=== PATIENT | male | born 1960 | race Caucasian/White ===

== ENCOUNTER 2018-10-05 14:30 | Emergency (ER) | payer SELFPAY ==
--- NOTE | 2018-10-05 15:41 | PDOC ---
History of Present Illness - General Chief Complaint: Alcohol intoxication Stated Complaint: INTOX/VOMITING Time Seen by Provider: 10/05/18 15:29 - History of Present Illness Initial Comments: 58yo M with PMH of HTN and ETOH abuse sent by [facility] for chest pain. Patient was at [facility] yesterday and was sent to [facility] for detox. Upon intake, patient was found to have chest pain and sent to this ED for further evaluation. Patient states he has had this chest pain for the past month. It is rated 6/10 and gets worse when he vomits and better when he drinks alcohol. He endorses that exertion also makes his pain worse. It is nonpalpable but it is pleuritic. It radiates to his left shoulder. He has never had pain like this before. Denies personal or family history of HI. He is a half pack per day smoker for the past six years. Patient believes he has seen a crm solution architect, more than five years ago, but is unsure whether he has had a stress test or not. No recent surgeries, no history of malignancy, no hemoptysis, no hormone use. Past History - Past Medical History Allergies/Adverse Reactions: Allergies Allergy/AdvReac Type Severity Reaction Status Date / Time No Known Allergies Allergy Verified 10/05/18 13:22 Home Medications: Ambulatory Orders Furosemide [Lasix -] 20 mg PO DAILY 10/05/18 Asthma: No Cardiac Disorders: No COPD: No Diabetes: No GI Disorders: No Disorders: No HTN: Yes Kidney Stones: No Seizures: No - Surgical History Appendectomy: Yes (1981) Orthopedic Surgery: Yes (right knee 1993) - Reproductive History Testicular Surgery: No - Suicide/Smoking/Psychosocial Hx Smoking History: Current every day smoker Have you smoked in the past 12 months: Yes Number of Cigarettes Smoked Daily: 10 Review of Systems - Review of Systems Comments:: Constitutional: no fever, no chills HEENT: no throat pain, no dysphagia Cardiovascular: +chest pain, no palpitations Respiratory: no cough, no shortness of breath Gastrointestinal: no abdominal pain,+vomiting Genitourinary: no dysuria, no frequency Musculoskeletal: no myalgia, no arthralgia Skin: no rash, no itching Neurologic: no headache, no dizziness *Physical Exam - Physical Exam Comments: General: Awake, alert, and fully oriented, in no acute distress Head: No signs of trauma Eyes: EOMI, sclera anicteric ENT: Moist mucus membranes Neck: Normal ROM, supple Lungs: Lungs clear, Normal breath sounds Cardio: Regular rhythm, S1 and S2 present Abdomen: Soft, nontender. No guarding, no rebound, no masses Extremities: Normal range of motion, Distal pulses present. No edema. SKIN: Warm, Dry, normal turgor Neurologic: Cranial nerves II through XII grossly intact. Normal speech. ED Treatment Course - LABORATORY CBC & Chemistry Diagram: 10/05/18 16:00 10/05/18 16:00 Medical Decision Making - Medical Decision Making 58yo M with PMH of HTN and ETOH abuse sent by [facility] for chest pain. DDX including but not limited to ACS, PNA, PE, MSK, Esophagitis Librium for alcohol withdrawal 1L NS Cardiac workup CXR: no acute pathology EKG with no ST d/e, isolated t wave abnormality in lead III No anemia or leukocytosis Electrolytes unremarkable AST 290, ALT 94 consistent with transaminitis due to alcohol abuse Decision made for RUQ US to elevate for abdominal pathology US: "Hepatomegaly with diffuse fatty infiltration of the liver" Tpn negative 10/05/18 20:02 Pending second tpn 10/05/18 20:59 Second tpn negative Lipase nl Will contact [facility] re: sending this patient to detox after negative cardiac workup 10/05/18 21:27 Another 50mg librium ordered for withdrawal Patient initially reluctant to present to detox, however, utilized motivational interviewing and patient amenable to going. 10/05/18 21:51 *DC/Admit/Observation/Transfer Diagnosis at time of Disposition: Alcoholic fatty liver Chest pain Qualifiers: Chest pain type: chest pain on breathing Qualified Code(s): R07.1 - Chest pain on breathing - Discharge Dispostion Disposition: HOME Condition at time of disposition: Stable - Referrals Referrals: [facility] [place] [facility] [place] [Provider Group] - Patient Instructions Printed Discharge Instructions: DI for Alcohol Abuse Additional Instructions: You came into the ED for chest pain. We performed blood work and an Xray which was normal. Lab work and an ultrasound showed signs of an enlarged and fatty liver. Follow-up with a primary care doctor this week to discuss this ED visit and to further evaluate your chest pain and abnormal liver. You have been referred to the [facility] in case you are unable to see your other doctor. Call and make an appointment at the number provided. Call for emergency medicine services or go to the emergency room right away if you have symptoms of a heart attack, including: Chest pain, which may feel like a crushing weight A sense of fullness, squeezing, or pressure in the chest Rapid, irregular heartbeat Pain, tingling or numbness in the left shoulder and arm, the neck or jaw, or the right arm Sweating Nausea or vomiting Lightheadedness, weakness, or fainting Shortness of breath If you think you have an emergency, call for medical help right away. - Post Discharge Activity
[2018-10-05] MEDS ORDERED: SODIUM CHLORIDE 1,000 ML IV STA (15:59)
[2018-10-05 16:40] VITALS: BP 157/87; PULSE 90; TEMP 98.3
[2018-10-05 16:46] LABS: BASO % 0.7 % (0-2.0); EOS % 0.5 % (0-4.5); HEMATOCRIT 38.8 % (35.4-49); HEMOGLOBIN 13.3 GM/dL (11.7-16.9); LYMPH % 17.7 % (8-40); MCH 35.1 pg (25.7-33.7); MCHC 34.2 g/dl (32.0-35.9); MEAN CELL VOLUME 102.4 fl (80-96); MEAN PLT VOLUME 8.5 fl (7.5-11.1); MONO % 5.3 % (3.8-10.2); NEUT % 75.8 % (42.8-82.8); PLATELET COUNT 110 K/MM3 (134-434); RBC 3.79 M/mm3 (4.00-5.60); RDW 14.5 % (11.9-15.9)
[2018-10-05 17:00] LABS: INR 1.01 (0.83-1.09); PROTHROMBIN TIME (PATIENT) 11.9 SEC (9.7-13.0)
[2018-10-05 17:16] LABS: ALBUMIN 3.7 g/dl (3.4-5.0); ALK PHOS 133 U/L (45-117); ANION GAP 12 MMOL/L (8-16); BILIRUBIN,TOTAL 1.4 mg/dL (0.2-1); BLOOD UREA NITROGEN 10 mg/dL (7-18); CALCIUM 8.3 mg/dL (8.5-10.1); CHLORIDE 102 mmol/L (98-107); CO2 24 mmol/L (21-32); CREATININE 0.7 mg/dL (0.55-1.3); GLUCOSE,RANDOM 73 mg/dL (74-106); POTASSIUM 3.5 mmol/L (3.5-5.1); SGOT/AST 290 U/L (15-37); SGPT/ALT 94 U/L (13-61); SODIUM 137 mmol/L (136-145); TOT PROT 7.1 g/dl (6.4-8.2)
[2018-10-05] MEDS ORDERED: chlordiazePOXIDE HCL 25 MG CAPSULE PO ONE ×2 (17:31→21:50)
[2018-10-05] MEDS ORDERED: chlordiazePOXIDE HCL 25 MG CAPSULE ONE ×2 (18:43→21:53)
--- NOTE | 2018-10-05 18:54 | PDOC ---
Attending Attestation - Resident Resident Name: Garima Miller - ED Attending Attestation I have performed the following: I have examined & evaluated the patient, The case was reviewed & discussed with the resident, I agree w/resident's findings & plan - HPI HPI: 10/06/18 07:09 [id number], with a significant past medical history of HTN and EtOH abuse, who presents to the emergency department via EMS from [facility] with, 1 month of worsening, 6/10, sharp, left-sided chest pain, AP and nausea. Allergies: NKA Past Medical History: HTN and EtOH abuse Social history: Lives with family. PPD. Alcohol abuse (last drink 2pt yesterday). No illicit drugs. Surgical history: None reported. - Physicial Exam PE: 10/05/18 18:55 NAD,alert, mentating, mildly tremulous, PERRL, EOMI, MMM, nl conjunctiva, anicteric; mild tongue fasiculations. neck supple. lungs clear, RRR, abdomen soft diffusely tender, over periumbilical region. no rebound or guarding. no CVAT. [place] x4, no focal neuro deficits. No peripheral edema. normal color for ethnicity, WWP. 10/06/18 07:09 - Medical Decision Making 10/05/18 18:54 DDx abdominal pain: Renal colic, biliary colic, metabolic/electrolyte derangements. GERD, PUD, esophageal spasm, pancreatitis, hepatitis, constipation , colitis, gastroenteritis, cholecystitis, alcohol w/d syndrome VS wnl, comfortable, no respiratory distress basic labs and lytes wnl. +LFT derangements c/w alcohol liver disease lipase_normal Abdomen US with fatty liver, no biliary abnormalities trop neg x1, serial trop to r/o ACS/arrhythmia, negative delta trop. back to [facility] detox center given dose of librium here for mild alcohol w/d syndrome. DC back to [facility] 10/06/18 07:09 10/06/18 07:11 Heart Score/ECG Review #1 ECG reviewed & interpreted by me at: 15:10 General ECG Interpretation: Sinus Rhythm Compared to previous ECG there are: Previous ECG unavail 10/05/18 19:16 EKG normal sinus rhythm at 88 bpm, no interval abnormalities, narrow QRS, ST and T wave segments and morphology normal. Nonspecific T wave abnormalities in III only, no contiguous lead changes, no prior
[2018-10-05 20:58] LABS: LIPASE 304 U/L (73-393)
--- NOTE | 2018-10-06 11:10 | EKG ---
Test Reason : Blood Pressure : / mmHG Vent. Rate : 088 BPM Atrial Rate : 088 BPM P-R Int : 150 ms QRS Dur : 082 ms QT Int : 420 ms P-R-T Axes : 008 037 028 degrees QTc Int : 508 ms NORMAL SINUS RHYTHM PROLONGED QT ABNORMAL ECG NO PREVIOUS ECGS AVAILABLE Confirmed by KATIANA SIERRA MD ([id number]) on 10/06/2018 11:10:18 AM Referred By: Confirmed By:KATIANA SIERRA MD
== END 2018-10-05 23:09 | disposition home or self-care (01) ==
LOC: JER 14:30
DX: K70.0 Alcoholic fatty liver (principal); R07.1 Chest pain on breathing; I10 Essential (primary) hypertension; F10.10 Alcohol abuse, uncomplicated
CPT/HCPCS: 36415; 71045-TC-FY; 76705-TC; 80053; 82550; 83690; 84484; 85025; 85610; 85730; 93005; 93010; 99284-25; J7030

== ENCOUNTER 2019-08-04 17:05 | Inpatient (IN) | payer OTHER ==
[2019-08-04 18:13] VITALS: BMI 30.7
--- NOTE | 2019-08-04 19:05 | HP ---
CIWA Score Nausea/Vomitin Muscle Tremors: 2 Anxiety: 2 Agitation: 2 Paroxysmal Sweats: 2 Orientation: 0-Oriented Tacttile Disturbances: 2-Mild Itch/Numbness/Burn Auditory Disturbances: 1-Very Mild Visual Disturbances: 1-Very Mild Sensitivity Headache: 2-Mild CIWA-Ar Total Score: 16 - Admission Criteria OASAS Guidelines: Admission for Medically Managed Detox: Requires at least one of the followin. CIWA greater than 12 2. Seizures within the past 24 hours 3. Delirium tremens within the past 24 hours 4. Hallucinations within the past 24 hours 5. Acute intervention needed for co occurring medical disorder 6. Acute intervention needed for co occurring psychiatric disorder 7. Severe withdrawal that cannot be handled at a lower level of care (continued vomiting, continued diarrhea, abnormal vital signs) requiring intravenous medication and/or fluids 8. Patient presents the following: CIWA greater than 12 Admission Criteria Met: Admission criteria met Admitting History and Physical - Smoking History Smoking history: Current every day smoker Have you smoked in the past 12 months: Yes Aproximately how many cigarettes per day: 10 Admission ROS [facility] Chief Complaint: Withdrawal symptoms Allergies/Adverse Reactions: Allergies Allergy/AdvReac Type Severity Reaction Status Date / Time No Known Allergies Allergy Verified 08/04/19 18:02 History of Present Illness: 59 year old male with alcohol dependence presents for detox. His last treatment was in June 2019 at [facility]. He reports blackout this morning , denies alcohol related seizures. Exam Limitations: No Limitations - Ebola screening Have you traveled outside of the country in the last 21 days: No Have you had contact with anyone from an Ebola affected area: No Have you been sick,other than usual withdrawal symptoms: No Do you have a fever: No - Review of Systems Constitutional: Chills, Loss of Appetite EENT: reports: No Symptoms Reported Respiratory: reports: Cough Cardiac: reports: No Symptoms Reported GI: reports: Nausea, Poor Fluid Intake, Abdominal cramping : reports: No Symptoms Reported Musculoskeletal: reports: Back Pain, Joint Pain, Muscle Pain, Muscle Weakness Integumentary: reports: Sweating Neuro: reports: Headache, Numbness, Tremors, Unsteady Gait (due to right knee pain requiring cane for ambulation) Endocrine: reports: No Symptoms Reported Hematology: reports: No Symptoms Reported Psychiatric: reports: Depressed Other Systems: Reviewed and Negative Patient History - Patient Medical History Hx Anemia: No Hx Asthma: No Hx Chronic Obstructive Pulmonary Disease (COPD): No Hx Cancer: No Hx Cardiac Disorders: No Hx Congestive Heart Failure: No Hx Hypertension: Yes Hx Hypercholesterolemia: No Hx Pacemaker: No HX Cerebrovascular Accident: No Hx Seizures: No Hx Dementia: No Hx Diabetes: No Hx Gastrointestinal Disorders: No Hx Liver Disease: No Hx Genitourinary Disorders: No Hx Sexually Transmitted Disorders: No Hx Renal Disease (ESRD): No Hx Thyroid Disease: No Hx Human Immunodeficiency Virus (HIV): No Hx Hepatitis C: No Hx Depression: Yes Hx Suicide Attempt: No Hx Bipolar Disorder: Yes Hx Schizophrenia: No - Patient Surgical History Past Surgical History: Yes Hx Neurologic Surgery: No Hx Cataract Extraction: No Hx Cardiac Surgery: No Hx Lung Surgery: No Hx Breast Surgery: No Hx Breast Biopsy: No Hx Abdominal Surgery: No Hx Appendectomy: Yes (1981) Hx Cholecystectomy: No Hx Genitourinary Surgery: No Hx Section: No Hx Orthopedic Surgery: Yes (right knee 1993) Other Surgical History: plastic surgery to fit teeth years ago Anesthesia Reaction: No - PPD History Previous Implant?: No Documented Results: Positive w/o proof Implanted On Prior [facility] Admission?: No PPD to be Administered?: No - Smoking Cessation Smoking history: Current every day smoker Have you smoked in the past 12 months: Yes Aproximately how many cigarettes per day: 10 Hx Chewing Tobacco Use: No Initiated information on smoking cessation: Yes 'Breaking Loose' booklet given: 08/04/19 - Substances abused Alcohol Substance route: Oral Frequency: Daily Amount used: 1 PINT A DAY Age of first use: 18 Date of last use: 08/03/19 Admission Physical Exam S - Vital Signs Vital Signs: Vital Signs - 24 hr 08/04/19 08/04/19 18:02 18:33 Temperature 101.8 F H 101.8 F H Pulse Rate 99 H 99 H Respiratory 18 18 Rate Blood Pressure 132/87 132/87 - Physical General Appearance: Yes: No Apparent Distress, Sweating HEENTM: Yes: EOMI, Hearing grossly Normal, Normocephalic, Normal Voice Respiratory: Yes: Chest Non-Tender, Lungs Clear, No Respiratory Distress, No Accessory Muscle Use Neck: Yes: No masses,lesions,Nodules, Supple Breast: Yes: Breast Exam Deferred Cardiology: Yes: Regular Rhythm, Regular Rate Abdominal: Yes: Normal Bowel Sounds, Non Tender, Soft Genitourinary: Yes: Within Normal Limits Back: Yes: Normal Inspection Musculoskeletal: Yes: full range of Motion, Pelvis Stable, Back pain, Muscle Pain, Muscle weakness, Other (right knee pain) Neurological: Yes: Fully Oriented, Alert, Normal Mood/Affect, Normal Response Integumentary: Yes: Moist Lymphatic: Yes: Within Normal Limits - Diagnostic (1) Alcohol dependence, uncomplicated Current Visit: Yes Status: Acute (2) Nicotine dependence Current Visit: Yes Status: Acute Qualifiers: Nicotine product type: cigarettes Substance use status: uncomplicated Qualified Code(s): F17.210 - Nicotine dependence, cigarettes, uncomplicated (3) Hypertension Current Visit: Yes Status: Acute Qualifiers: Hypertension type: essential hypertension Qualified Code(s): I10 - Essential (primary) hypertension (4) Depression Current Visit: Yes Status: Chronic (5) Knee pain, right Current Visit: Yes Status: Acute Qualifiers: Chronicity: chronic Qualified Code(s): M25.561 - Pain in right knee; G89.29 - Other chronic pain (6) Unsteady gait Current Visit: Yes Status: Chronic Cleared for Admission [facility] - Detox or Rehab [facility] Level of Care: Medically Managed Detox Regimen/Protocol: Librium Claeared for Rehab Admission: No Breathalyzer - Breathalyzer Breathalyzer: 0 Urine Drug Screen - Test Device Lot number: [id number] Expiration date: 02/20/21 - Control Is test valid?: Yes - Results Drug screen NEGATIVE: No Urine drug screen results: BZO-Benzodiazepines Inpatient Rehab Admission - Rehab Decision to Admit Inpatient rehab admission?: No
[2019-08-04] MEDS ORDERED: ACETAMINOPHEN 325 MG TABLET (FP) PO PRN ×2 (19:09)
[2019-08-04] MEDS ORDERED: MAG HYDROX/AL HYDROX/SIMETH 30 ML UNIT-DOSE CUP PO PRN (19:09)
[2019-08-04] MEDS ORDERED: NICOTINE POLACRILEX 2 MG GUM BUC PRN (19:09)
[2019-08-04] MEDS ORDERED: MAGNESIUM CITRATE 300 ML BOTTLE PO PRN (19:09)
[2019-08-04] MEDS ORDERED: MENTHOL/PHENOL 1 EACH UD MM PRN (19:09)
[2019-08-04] MEDS ORDERED: chlordiazePOXIDE HCL 10 MG CAPSULE PO PRN (19:09)
[2019-08-04] MEDS ORDERED: MAGNESIUM HYDROX 2400MG/30ML ORAL SUSPENSION 30 ML CUP PO PRN (19:09)
[2019-08-04] MEDS ORDERED: BISMUTH SUBSALICYLATE 524 MG/30 ML UD PO PRN (19:09)
[2019-08-04] MEDS: NICOTINE 14 MG/24 HOURS TOPICAL PATCH TD SCH (20:45)
[2019-08-04] MEDS: chlordiazePOXIDE HCL 25 MG CAPSULE PO SCH (20:45)
[2019-08-04] MEDS: IBUPROFEN 400 MG TABLET (FP) PO PRN (20:48)
[2019-08-04] MEDS ORDERED: traZODone HCL 50 MG TABLET (FP) PO ONE (21:00)
[2019-08-04] MEDS: THIAMINE HCL 100 MG TABLET (FP) PO SCH (21:35)
[2019-08-05] MEDS: chlordiazePOXIDE HCL 25 MG CAPSULE PO SCH ×3 (05:35→22:36)
[2019-08-05] MEDS: NICOTINE 14 MG/24 HOURS TOPICAL PATCH TD SCH (10:26)
[2019-08-05] MEDS: PRENATAL VITAMINS W/ FOLIC ACID TABLET (FP) PO SCH (10:27)
[2019-08-05 10:49] LABS: HEMATOCRIT 38.5 % (35.4-49); HEMOGLOBIN 12.7 GM/dL (11.7-16.9); MCH 32.5 pg (25.7-33.7); MCHC 32.9 g/dl (32.0-35.9); MEAN CELL VOLUME 98.5 fl (80-96); MEAN PLT VOLUME 8.6 fl (7.5-11.1); PLATELET COUNT 191 K/MM3 (134-434); RBC 3.91 M/mm3 (4.00-5.60); RDW 15.5 % (11.9-15.9); WHITE BLOOD COUNT 7.2 K/mm3 (4.0-10.0)
[2019-08-05 11:00] LABS: ALBUMIN 3.9 g/dl (3.4-5.0); BILIRUBIN,TOTAL 1.5 mg/dL (0.2-1); BLOOD UREA NITROGEN 13.2 mg/dL (7-18); CALCIUM 9.2 mg/dL (8.5-10.1); POTASSIUM 3.5 mmol/L (3.5-5.1); TOT PROT 7.1 g/dl (6.4-8.2)
[2019-08-05] MEDS: IBUPROFEN 400 MG TABLET (FP) PO PRN (13:09)
--- NOTE | 2019-08-05 15:32 | PN ---
S CIWA - CIWA Score Nausea/Vomitin-No Nausea/No Vomiting Muscle Tremors: 4-Moderate,w/Arms Extend Anxiety: 3 Agitation: 2 Paroxysmal Sweats: 2 Orientation: 1-Uncertain about Date Tacttile Disturbances: 0-None Auditory Disturbances: 0-None Visual Disturbances: 1-Very Mild Sensitivity Headache: 1-Very Mild CIWA-Ar Total Score: 14 S Progress Note (SOAP) Subjective: 59 years old male admitted on 08/04/19 for alcohol withdrawal sx management treating with librium detox regimen ambulating with cane deu to right knee arthritis walk with cane from bed to bathroom steady gait feeling tired limited conversation with staff Objective: 08/05/19 15:31 Vital Signs Temperature 98.9 F 08/05/19 13:47 Pulse Rate 85 08/05/19 13:47 Respiratory Rate 18 08/05/19 13:47 Blood Pressure 147/86 08/05/19 13:47 O2 Sat by Pulse Oximetry (%) Laboratory Last Values WBC 7.2 K/mm3 (4.0-10.0) 08/05/19 07:15 RBC 3.91 M/mm3 (4.00-5.60) L 08/05/19 07:15 Hgb 12.7 GM/dL (11.7-16.9) 08/05/19 07:15 Hct 38.5 % (35.4-49) 08/05/19 07:15 MCV 98.5 fl (80-96) H 08/05/19 07:15 MCH 32.5 pg (25.7-33.7) 08/05/19 07:15 MCHC 32.9 g/dl (32.0-35.9) 08/05/19 07:15 RDW 15.5 % (11.9-15.9) 08/05/19 07:15 Plt Count 191 K/MM3 (134-434) D 08/05/19 07:15 MPV 8.6 fl (7.5-11.1) 08/05/19 07:15 Sodium 136 mmol/L (136-145) 08/05/19 07:15 Potassium 3.5 mmol/L (3.5-5.1) 08/05/19 07:15 Chloride 102 mmol/L (98-107) 08/05/19 07:15 Carbon Dioxide 26 mmol/L (21-32) 08/05/19 07:15 Anion Gap 8 MMOL/L (8-16) 08/05/19 07:15 BUN 13.2 mg/dL (7-18) 08/05/19 07:15 Creatinine 1.0 mg/dL (0.55-1.3) 08/05/19 07:15 Est GFR (CKD-EPI)AfAm 96.40 08/05/19 07:15 Est GFR (CKD-EPI)NonAf 83.18 08/05/19 07:15 Random Glucose 158 mg/dL (74-106) H 08/05/19 07:15 Calcium 9.2 mg/dL (8.5-10.1) 08/05/19 07:15 Total Bilirubin 1.5 mg/dL (0.2-1) H 08/05/19 07:15 AST 41 U/L (15-37) H 08/05/19 07:15 ALT 32 U/L (13-61) 08/05/19 07:15 Alkaline Phosphatase 74 U/L (45-117) 08/05/19 07:15 Total Protein 7.1 g/dl (6.4-8.2) 08/05/19 07:15 Albumin 3.9 g/dl (3.4-5.0) 08/05/19 07:15 RPR Titer Nonreactive (NONREACTIVE) 08/05/19 07:15 lab noted Assessment: 08/05/19 15:32 alcohol withdrawal Plan: librium regimen
[2019-08-05] MEDS: THIAMINE HCL 100 MG TABLET (FP) PO SCH (22:35)
[2019-08-05] MEDS: hydrOXYzine PAMOATE 25 MG CAPSULE (FP) PO PRN (22:37)
[2019-08-05] MEDS: METHOCARBAMOL 500 MG TABLET PO PRN (22:37)
[2019-08-05] MEDS: MELATONIN 5 MG TABLETS PO PRN (22:37)
[2019-08-06] MEDS: IBUPROFEN 400 MG TABLET (FP) PO PRN (05:25)
[2019-08-06] MEDS: chlordiazePOXIDE 5 MG CAPSULE PO SCH ×3 (05:25→22:30)
--- NOTE | 2019-08-06 10:00 | PN ---
S CIWA - CIWA Score Nausea/Vomitin-No Nausea/No Vomiting Muscle Tremors: 3 Anxiety: 1-Mildly Anxious Agitation: 1-Slight > Activity Paroxysmal Sweats: 2 Orientation: 0-Oriented Tacttile Disturbances: 1-Very Mild Itch/Numbness Auditory Disturbances: 0-None Visual Disturbances: 1-Very Mild Sensitivity Headache: 2-Mild CIWA-Ar Total Score: 11 BHS Progress Note (SOAP) Subjective: 59 years old male admitted on 08/04/19 for alcohol withdrawal sx management treating with librium detox regimen feeling ok today slept through the night discuss aftercare with staff Objective: 08/06/19 09:59 Vital Signs Temperature 99.3 F 08/06/19 09:16 Pulse Rate 92 H 08/06/19 09:16 Respiratory Rate 18 08/06/19 09:16 Blood Pressure 130/75 08/06/19 09:16 O2 Sat by Pulse Oximetry (%) Laboratory Last Values WBC 7.2 K/mm3 (4.0-10.0) 08/05/19 07:15 RBC 3.91 M/mm3 (4.00-5.60) L 08/05/19 07:15 Hgb 12.7 GM/dL (11.7-16.9) 08/05/19 07:15 Hct 38.5 % (35.4-49) 08/05/19 07:15 MCV 98.5 fl (80-96) H 08/05/19 07:15 MCH 32.5 pg (25.7-33.7) 08/05/19 07:15 MCHC 32.9 g/dl (32.0-35.9) 08/05/19 07:15 RDW 15.5 % (11.9-15.9) 08/05/19 07:15 Plt Count 191 K/MM3 (134-434) D 08/05/19 07:15 MPV 8.6 fl (7.5-11.1) 08/05/19 07:15 Sodium 136 mmol/L (136-145) 08/05/19 07:15 Potassium 3.5 mmol/L (3.5-5.1) 08/05/19 07:15 Chloride 102 mmol/L (98-107) 08/05/19 07:15 Carbon Dioxide 26 mmol/L (21-32) 08/05/19 07:15 Anion Gap 8 MMOL/L (8-16) 08/05/19 07:15 BUN 13.2 mg/dL (7-18) 08/05/19 07:15 Creatinine 1.0 mg/dL (0.55-1.3) 08/05/19 07:15 Est GFR (CKD-EPI)AfAm 96.40 08/05/19 07:15 Est GFR (CKD-EPI)NonAf 83.18 08/05/19 07:15 Random Glucose 158 mg/dL (74-106) H 08/05/19 07:15 Calcium 9.2 mg/dL (8.5-10.1) 08/05/19 07:15 Total Bilirubin 1.5 mg/dL (0.2-1) H 08/05/19 07:15 AST 41 U/L (15-37) H 08/05/19 07:15 ALT 32 U/L (13-61) 08/05/19 07:15 Alkaline Phosphatase 74 U/L (45-117) 08/05/19 07:15 Total Protein 7.1 g/dl (6.4-8.2) 08/05/19 07:15 Albumin 3.9 g/dl (3.4-5.0) 08/05/19 07:15 RPR Titer Nonreactive (NONREACTIVE) 08/05/19 07:15 Assessment: 08/06/19 10:00 alcohol withdrawal Plan: librium regimen
[2019-08-06] MEDS: NICOTINE 14 MG/24 HOURS TOPICAL PATCH TD SCH (10:20)
[2019-08-06] MEDS: PRENATAL VITAMINS W/ FOLIC ACID TABLET (FP) PO SCH (10:21)
[2019-08-06] MEDS: METHOCARBAMOL 500 MG TABLET PO PRN (22:31)
[2019-08-06] MEDS: MELATONIN 5 MG TABLETS PO PRN (22:31)
[2019-08-06] MEDS: THIAMINE HCL 100 MG TABLET (FP) PO SCH (22:31)
[2019-08-06] MEDS: hydrOXYzine PAMOATE 25 MG CAPSULE (FP) PO PRN (22:32)
[2019-08-07] MEDS ORDERED: chlordiazePOXIDE HCL 10 MG CAPSULE PO PRN
[2019-08-07] MEDS: chlordiazePOXIDE HCL 10 MG CAPSULE PO SCH ×3 (05:54→22:30)
[2019-08-07] MEDS: IBUPROFEN 400 MG TABLET (FP) PO PRN ×2 (05:55→22:32)
[2019-08-07] MEDS: NICOTINE 14 MG/24 HOURS TOPICAL PATCH TD SCH (10:36)
[2019-08-07] MEDS: PRENATAL VITAMINS W/ FOLIC ACID TABLET (FP) PO SCH (10:36)
--- NOTE | 2019-08-07 15:51 | PN ---
[facility] CIWA - CIWA Score Nausea/Vomitin-No Nausea/No Vomiting Muscle Tremors: 2 Anxiety: 2 Agitation: 1-Slight > Activity Paroxysmal Sweats: 1-Minimal Palms Moist Orientation: 0-Oriented Tacttile Disturbances: 0-None Auditory Disturbances: 0-None Visual Disturbances: 0-None Headache: 0-None Present CIWA-Ar Total Score: 6 BHS Progress Note (SOAP) Subjective: 59 years old male admitted 08/04/19 for alcohol withdrawal sx management treating with librium detox regimen feeling ok today ambulating on hallway attend behavior and psychosocial therapies groups and meetings tremor mild anxiety Objective: 08/07/19 15:50 Vital Signs Temperature 98.5 F 08/07/19 09:04 Pulse Rate 81 08/07/19 09:04 Respiratory Rate 18 08/07/19 09:04 Blood Pressure 134/86 08/07/19 09:04 O2 Sat by Pulse Oximetry (%) Laboratory Last Values WBC 7.2 K/mm3 (4.0-10.0) 08/05/19 07:15 RBC 3.91 M/mm3 (4.00-5.60) L 08/05/19 07:15 Hgb 12.7 GM/dL (11.7-16.9) 08/05/19 07:15 Hct 38.5 % (35.4-49) 08/05/19 07:15 MCV 98.5 fl (80-96) H 08/05/19 07:15 MCH 32.5 pg (25.7-33.7) 08/05/19 07:15 MCHC 32.9 g/dl (32.0-35.9) 08/05/19 07:15 RDW 15.5 % (11.9-15.9) 08/05/19 07:15 Plt Count 191 K/MM3 (134-434) D 08/05/19 07:15 MPV 8.6 fl (7.5-11.1) 08/05/19 07:15 Sodium 136 mmol/L (136-145) 08/05/19 07:15 Potassium 3.5 mmol/L (3.5-5.1) 08/05/19 07:15 Chloride 102 mmol/L (98-107) 08/05/19 07:15 Carbon Dioxide 26 mmol/L (21-32) 08/05/19 07:15 Anion Gap 8 MMOL/L (8-16) 08/05/19 07:15 BUN 13.2 mg/dL (7-18) 08/05/19 07:15 Creatinine 1.0 mg/dL (0.55-1.3) 08/05/19 07:15 Est GFR (CKD-EPI)AfAm 96.40 08/05/19 07:15 Est GFR (CKD-EPI)NonAf 83.18 08/05/19 07:15 Random Glucose 158 mg/dL (74-106) H 08/05/19 07:15 Calcium 9.2 mg/dL (8.5-10.1) 08/05/19 07:15 Total Bilirubin 1.5 mg/dL (0.2-1) H 08/05/19 07:15 AST 41 U/L (15-37) H 08/05/19 07:15 ALT 32 U/L (13-61) 08/05/19 07:15 Alkaline Phosphatase 74 U/L (45-117) 08/05/19 07:15 Total Protein 7.1 g/dl (6.4-8.2) 08/05/19 07:15 Albumin 3.9 g/dl (3.4-5.0) 08/05/19 07:15 RPR Titer Nonreactive (NONREACTIVE) 08/05/19 07:15 lab noted Assessment: 08/07/19 15:50 alcohol withdrawal Plan: librium regimen
[2019-08-07] MEDS: MELATONIN 5 MG TABLETS PO PRN (22:30)
[2019-08-07] MEDS: THIAMINE HCL 100 MG TABLET (FP) PO SCH (22:30)
[2019-08-07] MEDS: hydrOXYzine PAMOATE 25 MG CAPSULE (FP) PO PRN (22:32)
[2019-08-07] MEDS: METHOCARBAMOL 500 MG TABLET PO PRN (22:34)
[2019-08-08] MEDS ORDERED: chlordiazePOXIDE HCL 10 MG CAPSULE PO ONE (05:00)
[2019-08-08] MEDS: IBUPROFEN 400 MG TABLET (FP) PO PRN (06:39)
--- NOTE | 2019-08-08 08:36 | PN ---
S CIWA - CIWA Score Nausea/Vomitin-No Nausea/No Vomiting Muscle Tremors: 1-None Visible, but [place] Anxiety: 1-Mildly Anxious Agitation: 1-Slight > Activity Paroxysmal Sweats: No Perspiration Orientation: 0-Oriented Tacttile Disturbances: 0-None Auditory Disturbances: 0-None Visual Disturbances: 0-None Headache: 0-None Present CIWA-Ar Total Score: 3 BHS Progress Note (SOAP) Subjective: alert,no compliant Objective: 08/08/19 08:34 Vital Signs Temperature 97.9 F 08/08/19 07:29 Pulse Rate 80 08/08/19 07:29 Respiratory Rate 18 08/08/19 07:29 Blood Pressure 132/81 08/08/19 07:29 O2 Sat by Pulse Oximetry (%) Assessment: 08/08/19 08:34 detox completed,no withdrawal symptom Plan: discharge today,follow up with after care program as arrangement
--- NOTE | 2019-08-08 08:36 | DS ---
[facility] Detox Discharge Summary Admission Date: 08/04/19 Discharge Date: 08/08/19 - History Present History: Alcohol Dependence Additional Comments: follow up after care program as arrangement Pertinent Past History: hypertension depression - Physical Exam Results Vital Signs: Vital Signs Temperature 97.9 F 08/08/19 07:29 Pulse Rate 80 08/08/19 07:29 Respiratory Rate 18 08/08/19 07:29 Blood Pressure 132/81 08/08/19 07:29 O2 Sat by Pulse Oximetry (%) Pertinent Admission Physical Exam Findings: withdrawal signs and symptom Vital Signs Temperature 97.9 F 08/08/19 07:29 Pulse Rate 80 08/08/19 07:29 Respiratory Rate 18 08/08/19 07:29 Blood Pressure 132/81 08/08/19 07:29 O2 Sat by Pulse Oximetry (%) - Treatment Hospital Course: Detox Protocol Followed, Detoxed Safely, Responded well, Discharged Condition Good Patient has Accepted a Rehab Referral to: [facility] - Medication Discharge Medications: Ambulatory Orders Melatonin 10 mg PO HS 08/04/19 traZODone HCL [Trazodone HCl] 100 mg PO DAILY 08/04/19 - Diagnosis (1) Alcohol dependence, uncomplicated Current Visit: Yes Status: Acute (2) Hypertension Current Visit: Yes Status: Acute Qualifiers: Hypertension type: essential hypertension Qualified Code(s): I10 - Essential (primary) hypertension (3) Nicotine dependence Current Visit: Yes Status: Acute Qualifiers: Nicotine product type: cigarettes Substance use status: uncomplicated Qualified Code(s): F17.210 - Nicotine dependence, cigarettes, uncomplicated - AMA Did Patient Leave Against Medical Advice: No
[2019-08-08 09:12] VITALS: BP 156/87; PULSE 85; TEMP 98.5
[2019-08-08] MEDS: NICOTINE 14 MG/24 HOURS TOPICAL PATCH TD SCH (11:05)
[2019-08-08] MEDS: PRENATAL VITAMINS W/ FOLIC ACID TABLET (FP) PO SCH (11:05)
== END 2019-08-08 10:39 | disposition home or self-care (01) | DRG 897 ==
LOC: YASAS 17:05 → Y3N 19:43
PROVIDERS: ADMIT Allergy & Immunology; ATTEND Allergy & Immunology
PROC: HZ2ZZZZ Detoxification Services for Substance Abuse Treatment (ICD-10-PCS; principal; 2019-08-04)
DX: F10.230 Alcohol dependence with withdrawal, uncomplicated (principal); F17.210 Nicotine dependence, cigarettes, uncomplicated; F32.9 Major depressive disorder, single episode, unspecified; I10 Essential (primary) hypertension; M17.11 Unilateral primary osteoarthritis, right knee; M25.561 Pain in right knee; G89.29 Other chronic pain; R26.81 Unsteadiness on feet; Z99.89 Dependence on other enabling machines and devices
CPT/HCPCS: 36415; 80053; 85027; 86593